=== PATIENT | female | born 1960 | race Caucasian/White ===

== ENCOUNTER 2020-11-29 18:06 | Emergency (ER) | payer BC ==
[2020-11-29 18:23] VITALS: BP 176/83; PULSE 89
[2020-11-29] MEDS ORDERED: Sodium Chloride 0.9% 10 ML Syringe FLUSH PRN (18:34)
--- NOTE | 2020-11-29 18:57 | EDM.PDOC ---
ED HPI GENERAL MEDICAL PROBLEM - General Chief Complaint: Cardiovascular Problem Stated Complaint: swollen feet Time Seen by Provider: 11/29/20 18:21 Source of Information: Reports: Patient, RN Notes Reviewed History Limitations: Reports: No Limitations - History of Present Illness INITIAL COMMENTS - FREE TEXT/NARRATIVE: Patient is a 60-year-old female presenting to the emergency department with complaints of swelling to her ankles as well as "feeling like her body is full of fluid ". She reports a history of stage II kidney failure. She does have as needed Lasix which she believes is 20 mg, however she has not taken it for the last few days. Denies any history of heart failure. She is had no chest pain or shortness of breath. She does report that she has had intermittent, stabbing back pain. Denies any dysuria. She was recently in [facility] and drove back today, therefore she was riding in a car for an extended period time leaving her feet in the dependent position. Treatments [employer]: Reports: Acetaminophen Right Flank Pain Score (Numeric/FACES): 7 - Related Data Allergies Allergy/AdvReac Type Severity Reaction Status Date / Time No Known Allergies Allergy Verified 11/29/20 18:14 Home Meds: Home Meds Albuterol Sulfate [Proair Hfa] 2 puff INH Q6H PRN 04/04/18 [History] Cetirizine [ZyrTEC] 10 mg PO DAILY 04/04/18 [History] Fluticasone Propion/Salmeterol [Advair 250-50 Diskus] 1 puff INH BID 04/04/18 [History] Valsartan 160 mg PO DAILY 04/04/18 [History] Calcium Carbonate [Calcium] 500 mg PO 11/29/20 [History] Cinnamon Bark [Cinnamon] 11/29/20 [History] Tumerric 1 tab PO DAILY 11/29/20 [History] Past Medical History HEENT History: Reports: None Cardiovascular History: Reports: High Cholesterol, Hypertension Respiratory History: Reports: Asthma Gastrointestinal History: Reports: None, Colon Polyp, Diverticulosis, Irritable Bowel Syndrome, Other (See Below) Other Gastrointestinal History: fatty liver, post op nausea and vomiting Genitourinary History: Reports: Other (See Below) Other Genitourinary History: renal insufficiency syndrome, proteinuria, OAB, kidney disease 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: Reports: None Musculoskeletal History: Reports: None Neurological History: Reports: None Psychiatric History: Reports: None Endocrine/Metabolic History: Reports: None Hematologic History: Reports: Anemia, Blood Transfusion(s) Immunologic History: Reports: None Oncologic (Cancer) History: Reports: None Dermatologic History: Reports: None - Infectious Disease History Infectious Disease History: Reports: Novel Coronavirus - Past Surgical History Head Surgeries/Procedures: Reports: None HEENT Surgical History: Reports: None Cardiovascular Surgical History: Reports: None Respiratory Surgical History: Reports: None GI Surgical History: Reports: Colonoscopy Female Surgical History: Reports: Hysterectomy, Oophorectomy Endocrine Surgical History: Reports: None Neurological Surgical History: Reports: None Musculoskeletal Surgical History: Reports: None Dermatological Surgical History: Reports: None Social & Family History - Family History Family Medical History: No Pertinent Family History Cardiac: Reports: CAD Oncologic: Reports: Breast, Colon, Lung - Tobacco Use Tobacco Use Status *Q: Never Tobacco User - Caffeine Use Caffeine Use: Reports: Coffee - Recreational Drug Use Recreational Drug Use: No ED ROS GENERAL - Review of Systems Review Of Systems: See Below Constitutional: Reports: No Symptoms. Denies: Fever, Chills, Weakness HEENT: Reports: No Symptoms Respiratory: Reports: No Symptoms. Denies: Shortness of Breath, Wheezing, Cough Cardiovascular: Reports: Edema (lower extremity). Denies: Chest Pain, Lightheadedness, Palpitations Endocrine: Reports: No Symptoms GI/Abdominal: Reports: No Symptoms. Denies: Abdominal Pain, Diarrhea, Nausea, Vomiting : Reports: No Symptoms Musculoskeletal: Reports: Other (intermittent, stabbing, low back pain) Skin: Reports: No Symptoms Neurological: Reports: No Symptoms Psychiatric: Reports: No Symptoms Hematologic/Lymphatic: Reports: No Symptoms Immunologic: Reports: No Symptoms ED EXAM, GENERAL - Physical Exam Exam: See Below Exam Limited By: No Limitations General Appearance: Alert, WD/WN, No Apparent Distress Respiratory/Chest: No Respiratory Distress, Lungs Clear, Normal Breath Sounds, No Accessory Muscle Use, Chest Non-Tender Cardiovascular: Normal Peripheral Pulses, Regular Rate, Rhythm, No Gallop, No JVD, No Murmur, No Rub, Other (1+ pitting edema to bilateral ankles.) Neurological: Alert, Oriented, CN II-XII Intact, Normal Cognition, Normal Gait, Normal Reflexes, No Motor/Sensory Deficits Psychiatric: Normal Affect, Normal Mood Skin Exam: Warm, Dry, Intact, Normal Color, No Rash #1 Interpretation EKG Date: 11/29/20 Time: 18:51 Rhythm: NSR Rate (Beats/Min): 77 [place]: Normal P-Wave: Present QRS: Normal ST-T: Normal QT: Normal Comparison: NA - No Prior EKG EKG Interpretation Comments: Normal sinus rhythm at 77 Q-wave lead III No ST changes EKg interpreted by Dr. Pan MD. Course - Vital Signs Last Recorded V/S: Last Vital Signs Temp 97.4 F 11/29/20 18:20 Pulse 89 11/29/20 18:20 Resp 20 11/29/20 18:20 BP 176/83 H 11/29/20 18:20 Pulse Ox 96 11/29/20 18:20 - Orders/Labs/Meds Orders: Active Orders 24 hr Category Date Time Status Peripheral IV Insertion Adult [OM.PC] Stat Oth 11/29/20 18:34 Ordered Labs: Laboratory Tests 11/29/20 11/29/20 11/29/20 Range/Units 18:48 18:48 18:48 WBC 7.87 (3.98-10.04) K/mm3 RBC 4.32 (3.98-5.22) M/mm3 Hgb 12.5 D (11.2-15.7) gm/dl Hct 39.6 (34.1-44.9) % MCV 91.7 (79.4-94.8) fl MCH 28.9 (25.6-32.2) pg MCHC 31.6 L (32.2-35.5) g/dl RDW Std Deviation 46.4 H (36.4-46.3) fL Plt Count 316 (182-369) K/mm3 MPV 11.0 (9.4-12.3) fl Neut % (Auto) 41.1 (34.0-71.1) % Lymph % (Auto) 44.7 (19.3-51.7) % [place] % (Auto) 6.2 (4.7-12.5) % Eos % (Auto) 6.6 H (0.7-5.8) Baso % (Auto) 1.3 H (0.1-1.2) % Neut # (Auto) 3.23 (1.56-6.13) K/mm3 Lymph # (Auto) 3.52 (1.18-3.74) K/mm3 [place] # (Auto) 0.49 H (0.24-0.36) K/mm3 Eos # (Auto) 0.52 H (0.04-0.36) K/mm3 Baso # (Auto) 0.10 H (0.01-0.08) K/mm3 Sodium 141 (136-145) mEq/L Potassium 3.6 (3.5-5.1) mEq/L Chloride 106 (98-107) mEq/L Carbon Dioxide 26 (21-32) mEq/L Anion Gap 12.6 (5-15) BUN 22 H (7-18) mg/dL Creatinine 0.9 (0.55-1.02) mg/dL Est Cr Clr Drug Dosing 47.15 mL/min Estimated GFR (MDRD) > 60 (>60) mL/min BUN/Creatinine Ratio 24.4 H (14-18) Glucose 109 H (70-99) mg/dL Calcium 8.8 (8.5-10.1) mg/dL Total Bilirubin 0.3 (0.2-1.0) mg/dL AST 22 (15-37) U/L ALT 23 (14-59) U/L Alkaline Phosphatase 94 (46-116) U/L NT-Pro-B Natriuret Pep 57 (0-125) pg/mL Total Protein 7.6 (6.4-8.2) g/dl Albumin 3.4 (3.4-5.0) g/dl Globulin 4.2 gm/dL Albumin/Globulin Ratio 0.8 L (1-2) Urine Color (Yellow) Urine Appearance (Clear) Urine pH (5.0-8.0) Ur Specific [place] (1.005-1.030) Urine Protein (Negative) Urine Glucose (UA) (Negative) Urine Ketones (Negative) Urine Occult Blood (Negative) Urine Nitrite (Negative) Urine Bilirubin (Negative) Urine Urobilinogen (0.2-1.0) Ur Leukocyte Esterase (Negative) Urine RBC (0-5) /hpf Urine WBC (0-5) /hpf Ur Epithelial Cells (0-5) /hpf Urine Bacteria (FEW) /hpf Urine Mucus (FEW) /hpf 11/29/20 Range/Units 20:20 WBC (3.98-10.04) K/mm3 RBC (3.98-5.22) M/mm3 Hgb (11.2-15.7) gm/dl Hct (34.1-44.9) % MCV (79.4-94.8) fl MCH (25.6-32.2) pg MCHC (32.2-35.5) g/dl RDW Std Deviation (36.4-46.3) fL Plt Count (182-369) K/mm3 MPV (9.4-12.3) fl Neut % (Auto) (34.0-71.1) % Lymph % (Auto) (19.3-51.7) % [place] % (Auto) (4.7-12.5) % Eos % (Auto) (0.7-5.8) Baso % (Auto) (0.1-1.2) % Neut # (Auto) (1.56-6.13) K/mm3 Lymph # (Auto) (1.18-3.74) K/mm3 [place] # (Auto) (0.24-0.36) K/mm3 Eos # (Auto) (0.04-0.36) K/mm3 Baso # (Auto) (0.01-0.08) K/mm3 Sodium (136-145) mEq/L Potassium (3.5-5.1) mEq/L Chloride (98-107) mEq/L Carbon Dioxide (21-32) mEq/L Anion Gap (5-15) BUN (7-18) mg/dL Creatinine (0.55-1.02) mg/dL Est Cr Clr Drug Dosing mL/min Estimated GFR (MDRD) (>60) mL/min BUN/Creatinine Ratio (14-18) Glucose (70-99) mg/dL Calcium (8.5-10.1) mg/dL Total Bilirubin (0.2-1.0) mg/dL AST (15-37) U/L ALT (14-59) U/L Alkaline Phosphatase (46-116) U/L NT-Pro-B Natriuret Pep (0-125) pg/mL Total Protein (6.4-8.2) g/dl Albumin (3.4-5.0) g/dl Globulin gm/dL Albumin/Globulin Ratio (1-2) Urine Color Yellow (Yellow) Urine Appearance Clear (Clear) Urine pH 5.5 (5.0-8.0) Ur Specific [place] > or = 1.030 (1.005-1.030) Urine Protein 3+ H (Negative) Urine Glucose (UA) Negative (Negative) Urine Ketones Negative (Negative) Urine Occult Blood Negative (Negative) Urine Nitrite Negative (Negative) Urine Bilirubin Negative (Negative) Urine Urobilinogen 0.2 (0.2-1.0) Ur Leukocyte Esterase Negative (Negative) Urine RBC 0-5 (0-5) /hpf Urine WBC 0-5 (0-5) /hpf Ur Epithelial Cells 5-10 H (0-5) /hpf Urine Bacteria Few (FEW) /hpf Urine Mucus Moderate H (FEW) /hpf Meds: Medications Discontinued Medications Generic Name Dose Route Start Last Admin Trade Name Freq PRN Reason Stop Dose Admin Furosemide 20 mg 11/29/20 20:07 11/29/20 20:26 Furosemide 20 Mg Tab PO 11/29/20 20:08 20 mg ONETIME ONE Administration Sodium Chloride 10 ml 11/29/20 18:34 11/29/20 18:55 Sodium Chloride 0.9% 10 Ml Syringe FLUSH 10 ml ASDIRECTED PRN Administration Keep Vein Open - Re-Assessments/Exams Free Text/Narrative Re-Assessment/Exam: 11/29/20 21:15 Urinalysis shows 3+ protein but no evidence of infection. Hematology is grossly unremarkable. GFR is normal. BNP is normal. EKG shows normal sinus rhythm . Patient has received Lasix 20 mg p.o. Recommend follow-up with her primary care provider her next available visit. Discharge instructions as documented. Departure - Departure Time of Disposition: 21:15 Disposition: Home, Self-Care 01 Condition: Good Clinical Impression: Peripheral edema Instructions: Peripheral Edema Referrals: Loretta Robles MD [Primary Care Provider] - Forms: ED Department Discharge Additional Instructions: You were seen in the emergency department today for evaluation with regards to edema of your lower extremities. Work-up included blood work, urinalysis, and EKG of your heart. Results of work-up were found to be overall normal with the exception of some protein in your urine. Your kidney function today looks normal. Recommend that you use your Lasix that has been prescribed as needed for fluid retention. Call tomorrow to schedule follow-up appointment with your primary care provider. Return to ER as needed. Sepsis Event Note (ED) - Evaluation Sepsis Screening Result: No Definite Risk - Focused Exam Vital Signs: Vital Signs Temp Pulse Resp BP Pulse Ox 11/29/20 18:20 97.4 F 89 20 176/83 H 96 - My Orders Last 24 Hours: My Active Orders 11/29/20 18:34 Peripheral IV Insertion Adult [OM.PC] Stat - Assessment/Plan Last 24 Hours: My Active Orders 11/29/20 18:34 Peripheral IV Insertion Adult [OM.PC] Stat
[2020-11-29] MEDS ORDERED: Furosemide 20 MG Tab PO ONE (20:07)
== END 2020-11-29 21:22 | disposition home or self-care (01) ==
LOC: JD.ED 18:06
DX: R60.0 Localized edema (principal); I10 Essential (primary) hypertension
CPT/HCPCS: 36415; 80053; 81001; 83880; 85025; 93005; 99284; A9270; 93010

== ENCOUNTER → 2021-06-07 | Day surgery (SDC) | payer BC, OTHER ==
[~2021-06-07] MED LIST: Lactated Ringers 1,000 ML IV SCH; Lidocaine 1%/Sod Bicarbonate in NS 8.4% 1 ML Syringe IDERM PRN; Scopolamine 1.5 MG Transdermal Patch TRDERM PRN; Sodium Chloride 0.9% 10 ML Syringe FLUSH PRN
[2021-06-07 08:47] VITALS: BP 140/88; PULSE 99
== END ==
LOC: JD.SDS 06:02
PROVIDERS: ATTEND Family Medicine
DX: U07.1 COVID-19 (principal); Z53.09 Procedure and treatment not carried out because of other contraindication
CPT/HCPCS: 87635; J7120; U0002

== ENCOUNTER 2021-08-17 07:29 | Day surgery (SDC) | payer BC ==
[~2021-08-17 07:29] MED LIST changes: +Lidocaine 1% 4 ML ONE; +Midazolam 1 MG/ML 2 ML SDV ONE; +Ondansetron 4 MG/2 ML SDV ONE; +Propofol 200 MG/20 ML SDV ONE; -Scopolamine 1.5 MG Transdermal Patch TRDERM PRN; -Sodium Chloride 0.9% 10 ML Syringe FLUSH PRN; +fentaNYL 100 MCG/2 ML SDV ONE
[2021-08-17 09:43] VITALS: BP 124/60; PULSE 79
== END 2021-08-17 09:07 | disposition home or self-care (01) ==
LOC: JD.SDS 07:29
PROVIDERS: ATTEND Family Medicine
DX: Z12.11 Encounter for screening for malignant neoplasm of colon (principal); K64.0 First degree hemorrhoids; Z80.0 Family history of malignant neoplasm of digestive organs; I10 Essential (primary) hypertension; E66.01 Morbid (severe) obesity due to excess calories; N32.81 Overactive bladder; Z86.010 Personal history of colon polyps; Z98.890 Other specified postprocedural states; Z79.899 Other long term (current) drug therapy; Z87.891 Personal history of nicotine dependence; Z68.41 Body mass index [BMI] 40.0-44.9, adult
CPT/HCPCS: 45378; J2250; J2405; J2704; J3010; J7120; 00812

== ENCOUNTER 2022-05-02 17:10 | Emergency (ER) | payer BC ==
[2022-05-02] MEDS ORDERED: Ondansetron 4 MG/2 ML SDV IVPUSH ONE (17:36)
[2022-05-02] MEDS ORDERED: Sodium Chloride 0.9% 10 ML Syringe FLUSH PRN (17:36)
[2022-05-02] MEDS ORDERED: Sodium Chloride 0.9% 1,000 ML IV SCH (17:45)
[2022-05-02 18:27] LABS: ESTIMATED GFR 72 mL/min (>60)
[2022-05-02] MEDS ORDERED: Iopamidol 612 MG/ML 100 ML Bottle IVPUSH ONE (21:25)
== END 2022-05-02 22:24 | disposition home or self-care (01) ==
LOC: JD.ED 17:10
DX: R10.30 Lower abdominal pain, unspecified (principal); I10 Essential (primary) hypertension; J45.909 Unspecified asthma, uncomplicated; E66.9 Obesity, unspecified; Z87.891 Personal history of nicotine dependence; Z79.899 Other long term (current) drug therapy
CPT/HCPCS: 36415; 74177; 80053; 81001; 83690; 83735; 85025; 86140; 96360; 96361; 99284; J2405; J7030; Q9967

== ENCOUNTER 2022-10-11 20:25 | Emergency (ER) | payer BC, MEDICARE ==
[2022-10-11 21:49] LABS: CORONAVIRUS COVID-19 NAA NEGATIVE (NEGATIVE)
[2022-10-11] MEDS ORDERED: Ketorolac 60 MG/2 ML SDV IM ONE (21:51)
== END 2022-10-11 22:11 | disposition home or self-care (01) ==
LOC: JD.ED 20:25
DX: R50.9 Fever, unspecified (principal); E78.00 Pure hypercholesterolemia, unspecified; I10 Essential (primary) hypertension; J45.909 Unspecified asthma, uncomplicated; E66.9 Obesity, unspecified; Z68.41 Body mass index [BMI] 40.0-44.9, adult; Z86.16 Personal history of COVID-19; Z20.822 Contact with and (suspected) exposure to COVID-19; Z79.899 Other long term (current) drug therapy
CPT/HCPCS: 0241U; 36415; 71045; 80053; 81001; 85025; 86140; 87086; 96372; 99283; J1885

== ENCOUNTER 2024-07-31 06:30 | Day surgery (SDC) | payer MEDICARE ==
[~2024-07-31 06:30] MED LIST changes: -Lactated Ringers 1,000 ML IV SCH; -Lidocaine 1% 4 ML ONE; -Lidocaine 1%/Sod Bicarbonate in NS 8.4% 1 ML Syringe IDERM PRN; -Midazolam 1 MG/ML 2 ML SDV ONE; -Ondansetron 4 MG/2 ML SDV ONE; -Propofol 200 MG/20 ML SDV ONE; +Sodium Chloride 0.9% 10 ML Syringe FLUSH PRN; +Sodium Chloride 0.9% 10 ML Syringe FLUSH SCH; -fentaNYL 100 MCG/2 ML SDV ONE
[2024-07-31] MEDS: Acetaminophen 325 MG Tab PO ONE (07:09)
[2024-07-31] MEDS: Pregabalin 25 MG Cap PO ONE (07:09)
[2024-07-31] MEDS: oxyCODONE ER 10 MG TAB.ER PO ONE (07:09)
[2024-07-31] MEDS: Lactated Ringers 1,000 ML IV SCH (07:10)
[2024-07-31] MEDS ORDERED: Propofol 200 MG/20 ML SDV ONE ×3 (07:21→08:59)
[2024-07-31] MEDS ORDERED: dexmedeTOMIDine HCl 200 MCG/2 ML SDV ONE (07:22)
[2024-07-31] MEDS ORDERED: Ondansetron 4 MG/2 ML SDV ONE (07:22)
[2024-07-31] MEDS ORDERED: Dexamethasone 4 MG/ML 5 ML MDV ONE (07:22)
[2024-07-31] MEDS ORDERED: Midazolam 1 MG/ML 2 ML SDV ONE (07:22)
[2024-07-31] MEDS ORDERED: Ropivacaine 0.5% 5 MG/ML 30 ML SDV ONE (07:32)
[2024-07-31] MEDS ORDERED: Phenylephrine 1% 10 MG/ML SDV ONE (08:22)
[2024-07-31] MEDS ORDERED: ceFAZolin 2 GM Vial ONE (08:22)
[2024-07-31] MEDS ORDERED: ePHEDrine 50 MG/ML SDV ONE (08:34)
[2024-07-31] MEDS ORDERED: HYDROmorphone 0.5 MG/0.5 ML Syringe IVPUSH PRN (08:59)
[2024-07-31] MEDS ORDERED: Ondansetron 4 MG/2 ML SDV IVPUSH PRN (08:59)
[2024-07-31] MEDS ORDERED: Ketorolac 30 MG/ML SDV IVPUSH PRN (09:00)
[2024-07-31] MEDS: Morphine 8 MG, EPINEPHrine 0.3 MG, Cefuroxime 750 MG, Ketorolac 30 MG, Sodium Chloride ... PRN (09:26)
[2024-07-31] MEDS: Tranexamic Acid 1,000 MG/10 ML Vial ONE (09:31)
[2024-07-31] MEDS: VANCOmycin 1 GM SDV ONE (09:31)
[2024-07-31] MEDS: Triamcinolone Acetonide 40 MG/ML 1 ML SDV ONE (09:50)
[2024-07-31] MEDS: Bupivacaine 0.25% 10 ML SDV ONE (09:50)
[2024-07-31] MEDS: fentaNYL 100 MCG/2 ML SDV IVPUSH PRN (10:00)
[2024-07-31] MEDS: oxyCODONE 5 MG Tab PO PRN (11:10)
== END 2024-07-31 15:45 | disposition home or self-care (01) ==
LOC: JD.SDS 06:30
PROVIDERS: ATTEND Orthopaedic Surgery
DX: M17.0 Bilateral primary osteoarthritis of knee (principal); J45.30 Mild persistent asthma, uncomplicated; I10 Essential (primary) hypertension; E78.00 Pure hypercholesterolemia, unspecified; N28.9 Disorder of kidney and ureter, unspecified; K21.9 Gastro-esophageal reflux disease without esophagitis; E66.9 Obesity, unspecified; Z79.899 Other long term (current) drug therapy; Z87.891 Personal history of nicotine dependence; Z88.8 Allergy status to other drugs, medicaments and biological substances; Z68.30 Body mass index [BMI] 30.0-30.9, adult
CPT/HCPCS: 0055T; 20610; 27447; 64447; 73560; 97110; 97116; 97161; A9270; C1713; C1776; J0171; J0665; J0690; J0697; J1100; J1885; J2250; J2272; J2371; J2405; J2704; J2795; J3010; J3301; J7120; J3490